=== PATIENT | female | born 1950 | race Caucasian/White ===

== ENCOUNTER 2022-07-30 06:03 | Inpatient (IN) ==
[~2022-07-30 06:03] MED LIST: 0.9 % Sodium Chloride 1,000 ML IVC ONE; Acetaminophen IV 1,000 MG/100 ML BAG IVPB ONE
[2022-07-30] MEDS ORDERED: CeFAZolin Syr 2,000MG/20 ML 2,000 MG/20 ML SYRINGE IVPB ONE (06:28)
[2022-07-30] MEDS ORDERED: Ringers Solution, Lactated 1,000 ML IVC SCH (06:30)
[2022-07-30] MEDS ORDERED: *HR* FentaNYL (PF) 100 MCG/2 ML VIAL ONE (06:34)
[2022-07-30] MEDS ORDERED: *HR* Propofol 200 MG/20 ML VIAL IVP ONE (06:34)
[2022-07-30] MEDS ORDERED: *HR* Rocuronium Bromide 50 MG/5 ML VIAL ONE (06:36)
[2022-07-30] MEDS ORDERED: Lidocaine -MPF 2% 5 ML VIAL ONE (06:36)
[2022-07-30] MEDS ORDERED: Ondansetron 4 MG/2 ML VIAL ONE (06:36)
[2022-07-30] MEDS ORDERED: *HR* Vasopressin 20 UNIT/ML VIAL ONE (06:47)
[2022-07-30] MEDS ORDERED: Famotidine 20 MG/2 ML VIAL IVP ONE (07:00)
[2022-07-30] MEDS ORDERED: *HR* HYDROmorphone PF 0.5 MG/0.5 ML SYRINGE IVP PRN (07:25)
[2022-07-30] MEDS ORDERED: Ipratropium/Albuterol Neb 3 ML IH ONE (07:25)
[2022-07-30] MEDS ORDERED: Naloxone 0.4 MG/ML INJ IVP PRN ×2 (07:25→10:29)
[2022-07-30] MEDS ORDERED: Nitroglycerin 0.4 MG TAB.SUBL SL PRN (07:25)
[2022-07-30] MEDS ORDERED: *HR* Midazolam HCl 2 MG/2 ML VIAL ONE (07:32)
[2022-07-30] MEDS ORDERED: *HR* HYDROMORPHONE 2 MG/ML VIAL ONE (08:20)
[2022-07-30] MEDS ORDERED: Sugammadex Sodium 200 MG/2 ML VIAL IV ONE (08:44)
[2022-07-30] MEDS ORDERED: *HR* Dextrose 50 % in Water (Syg) 50 ML SYRINGE IVP PRN (10:29)
[2022-07-30] MEDS ORDERED: D5% in Water 1,000 ML IVC PRN (10:29)
[2022-07-30] MEDS ORDERED: Ondansetron 4 MG/2 ML VIAL IVP PRN (10:29)
[2022-07-30] MEDS ORDERED: Dextrose Gel 15 GM/37.5 ML TUBE PO PRN ×2 (10:29)
[2022-07-30] MEDS: 0.9 % Sodium Chloride 1,000 ML IVC SCH (11:00)
[2022-07-30] MEDS: Levalbuterol Neb 1.25 MG/3 ML IH SCH ×3 (11:12→22:50)
[2022-07-30] MEDS: Insulin LISPRO 300 UNITS/3 ML VIAL SUBQ SCH ×3 (12:30→20:24)
[2022-07-30] MEDS: *HR* HYDROcodone/Acet 5/325 mg TABLET PO PRN ×2 (12:52→20:28)
[2022-07-30] MEDS: *HR* Heparin 5,000 UNIT/ML VIAL SQ SCH ×2 (13:05→20:25)
[2022-07-30] MEDS: Gabapentin 300 MG CAPSULE PO SCH ×2 (14:05→20:24)
[2022-07-30] MEDS ORDERED: *HR* Glimepiride 4 MG TABLET PO SCH (17:00)
[2022-07-30] MEDS: *HR* SitaGLIPtin 25 MG TABLET PO SCH (18:29)
[2022-07-30] MEDS: *HR* Metformin 500 MG TABLET PO SCH (18:29)
[2022-07-30] MEDS: Famotidine 20 MG TABLET PO SCH (20:24)
[2022-07-30] MEDS: Aspirin Enteric Coated 325 MG Tablet PO SCH (20:24)
[2022-07-30] MEDS: Sennosides/Docusate Sodium TABLET PO SCH (20:24)
[2022-07-31 03:33] LABS: Hematocrit 25.1 % (35.3-44.9); Mean Corpuscular HGB Conc 31.1 g/dL (31.6-35.5); Mean Corpuscular Hemoglobin 31.1 pg (28.0-33.3); Mean Platelet Volume 9.6 fL (9.4-12.4); Platelet Count 269 K/mcL (140-400); Red Blood Count 2.51 M/mcL (3.82-4.97); Red Cell Distribution Width 13.5 % (11.5-14.5)
[2022-07-31 03:35] LABS: Hemoglobin 7.8 g/dL (11.5-15.4)
[2022-07-31 03:51] LABS: Calcium 7.1 mg/dL (8.6-10.3); Magnesium 1.7 mg/dL (1.6-2.6); Potassium 3.9 mEq/L (3.5-5.1)
[2022-07-31] MEDS: Levalbuterol Neb 1.25 MG/3 ML IH SCH ×4 (04:54→21:36)
[2022-07-31] MEDS: *HR* Heparin 5,000 UNIT/ML VIAL SQ SCH ×4 (04:57→20:08)
[2022-07-31] MEDS: 0.9 % Sodium Chloride 1,000 ML IVC SCH (07:41)
[2022-07-31] MEDS: *HR* Metformin 500 MG TABLET PO SCH ×2 (07:41→16:21)
[2022-07-31] MEDS: Famotidine 20 MG TABLET PO SCH ×2 (07:42→20:07)
[2022-07-31] MEDS: FLUoxetine 20 MG CAPSULE PO SCH (07:42)
[2022-07-31] MEDS: Gabapentin 300 MG CAPSULE PO SCH ×3 (07:42→20:07)
[2022-07-31] MEDS: *HR* SitaGLIPtin 25 MG TABLET PO SCH ×2 (07:42→16:21)
[2022-07-31] MEDS: *HR* HYDROcodone/Acet 5/325 mg TABLET PO PRN ×3 (07:42→20:06)
[2022-07-31] MEDS: Sennosides/Docusate Sodium TABLET PO SCH ×2 (07:45→20:07)
[2022-07-31] MEDS: Insulin LISPRO 300 UNITS/3 ML VIAL SUBQ SCH ×4 (07:48→20:09)
[2022-07-31] MEDS: *HR* Glimepiride 4 MG TABLET PO SCH ×2 (09:51→20:07)
[2022-07-31] MEDS: Aspirin Enteric Coated 325 MG Tablet PO SCH (20:07)
[2022-07-31] MEDS: Budesonide/Formoterol 160/4.5 1 PUFF INH IH SCH (21:36)
[2022-08-01 03:16] LABS: Hematocrit 22.4 % (35.3-44.9); Hemoglobin 7.2 g/dL (11.5-15.4); Mean Corpuscular HGB Conc 32.1 g/dL (31.6-35.5); Mean Corpuscular Hemoglobin 32.3 pg (28.0-33.3); Mean Corpuscular Volume 100.4 fL (83.0-100.0); Mean Platelet Volume 9.5 fL (9.4-12.4); Platelet Count 253 K/mcL (140-400); Red Blood Count 2.23 M/mcL (3.82-4.97); Red Cell Distribution Width 13.8 % (11.5-14.5); White Blood Count 6.6 K/mcL (4.3-11.1)
[2022-08-01 03:29] LABS: Calcium 8.1 mg/dL (8.6-10.3); Potassium 4.5 mEq/L (3.5-5.1)
[2022-08-01] MEDS: Levalbuterol Neb 1.25 MG/3 ML IH SCH ×4 (04:49→22:34)
[2022-08-01] MEDS: *HR* Heparin 5,000 UNIT/ML VIAL SQ SCH ×3 (05:29→20:50)
[2022-08-01] MEDS: *HR* HYDROcodone/Acet 5/325 mg TABLET PO PRN ×4 (05:52→20:50)
[2022-08-01] MEDS: *HR* Metformin 500 MG TABLET PO SCH ×2 (08:20→16:41)
[2022-08-01] MEDS: Sennosides/Docusate Sodium TABLET PO SCH ×2 (08:20→21:00)
[2022-08-01] MEDS: Gabapentin 300 MG CAPSULE PO SCH ×3 (08:21→20:50)
[2022-08-01] MEDS: FLUoxetine 20 MG CAPSULE PO SCH (08:21)
[2022-08-01] MEDS: *HR* SitaGLIPtin 25 MG TABLET PO SCH ×2 (08:22→16:41)
[2022-08-01] MEDS: *HR* Glimepiride 4 MG TABLET PO SCH ×2 (08:22→21:35)
[2022-08-01] MEDS: Famotidine 20 MG TABLET PO SCH ×2 (08:22→20:50)
[2022-08-01] MEDS: Insulin LISPRO 300 UNITS/3 ML VIAL SUBQ SCH ×4 (08:23→20:50)
[2022-08-01] MEDS: Budesonide/Formoterol 160/4.5 1 PUFF INH IH SCH ×2 (10:40→22:33)
[2022-08-01] MEDS: Aspirin Enteric Coated 325 MG Tablet PO SCH (20:49)
[2022-08-02] MEDS: *HR* HYDROcodone/Acet 5/325 mg TABLET PO PRN ×3 (01:58→17:27)
[2022-08-02] MEDS: Levalbuterol Neb 1.25 MG/3 ML IH SCH ×4 (04:53→21:05)
[2022-08-02] MEDS: *HR* Heparin 5,000 UNIT/ML VIAL SQ SCH ×3 (05:05→22:16)
[2022-08-02] MEDS: *HR* SitaGLIPtin 25 MG TABLET PO SCH ×2 (09:28→16:56)
[2022-08-02] MEDS: *HR* Metformin 500 MG TABLET PO SCH ×2 (09:28→16:56)
[2022-08-02] MEDS: *HR* Glimepiride 4 MG TABLET PO SCH ×2 (09:28→17:27)
[2022-08-02] MEDS: Sennosides/Docusate Sodium TABLET PO SCH ×2 (09:28→19:55)
[2022-08-02] MEDS: Gabapentin 300 MG CAPSULE PO SCH ×3 (09:28→19:54)
[2022-08-02] MEDS: FLUoxetine 20 MG CAPSULE PO SCH (09:28)
[2022-08-02] MEDS: Famotidine 20 MG TABLET PO SCH ×2 (09:29→19:54)
[2022-08-02] MEDS: Insulin LISPRO 300 UNITS/3 ML VIAL SUBQ SCH ×4 (10:06→19:54)
[2022-08-02] MEDS: Budesonide/Formoterol 160/4.5 1 PUFF INH IH SCH ×2 (11:13→21:05)
[2022-08-02] MEDS: Aspirin Enteric Coated 325 MG Tablet PO SCH (19:54)
[2022-08-03] MEDS: *HR* HYDROcodone/Acet 5/325 mg TABLET PO PRN ×4 (03:15→20:34)
[2022-08-03] MEDS: Levalbuterol Neb 1.25 MG/3 ML IH SCH ×4 (04:19→21:38)
[2022-08-03] MEDS: *HR* Heparin 5,000 UNIT/ML VIAL SQ SCH ×2 (06:03→15:07)
[2022-08-03 07:16] LABS: Hematocrit 21.5 % (35.3-44.9); Hemoglobin 6.8 g/dL (11.5-15.4); Mean Corpuscular HGB Conc 31.6 g/dL (31.6-35.5); Mean Corpuscular Hemoglobin 31.1 pg (28.0-33.3); Mean Corpuscular Volume 98.2 fL (83.0-100.0); Mean Platelet Volume 9.4 fL (9.4-12.4); Platelet Count 310 K/mcL (140-400); Red Blood Count 2.19 M/mcL (3.82-4.97); Red Cell Distribution Width 13.6 % (11.5-14.5); White Blood Count 7.2 K/mcL (4.3-11.1)
[2022-08-03 07:37] LABS: BUN/Creatinine Ratio 21 (6-26); Blood Urea Nitrogen 15 mg/dL (8-23); Calcium 8.2 mg/dL (8.6-10.3); Carbon Dioxide 21 mEq/L (23-29); Chloride 100 mEq/L (98-107); Glucose 196 mg/dL (70-105); Osmolality,Calculated 272 (280-300); Potassium 4.1 mEq/L (3.5-5.1); Sodium 128 mEq/L (136-145)
[2022-08-03] MEDS: Famotidine 20 MG TABLET PO SCH ×2 (08:09→20:23)
[2022-08-03] MEDS: Sennosides/Docusate Sodium TABLET PO SCH ×2 (08:09→20:23)
[2022-08-03] MEDS: *HR* Metformin 500 MG TABLET PO SCH ×2 (08:09→17:57)
[2022-08-03] MEDS: *HR* SitaGLIPtin 25 MG TABLET PO SCH ×2 (08:09→17:57)
[2022-08-03] MEDS: *HR* Glimepiride 4 MG TABLET PO SCH ×2 (08:09→17:57)
[2022-08-03] MEDS: FLUoxetine 20 MG CAPSULE PO SCH (08:09)
[2022-08-03] MEDS: Insulin LISPRO 300 UNITS/3 ML VIAL SUBQ SCH ×4 (08:10→20:24)
[2022-08-03] MEDS: Gabapentin 300 MG CAPSULE PO SCH ×2 (08:10→15:08)
[2022-08-03] MEDS: Budesonide/Formoterol 160/4.5 1 PUFF INH IH SCH ×2 (10:28→21:38)
[2022-08-03] MEDS ORDERED: 0.9 % Sodium Chloride 500 ML ONE (11:31)
[2022-08-03 15:11] LABS: Hematocrit 23.9 % (35.3-44.9); Hemoglobin 7.8 g/dL (11.5-15.4)
[2022-08-03 19:56] LABS: Basophils % 0.1 %; Eosinophils # 0.2 K/mcL (0.0-0.6); Eosinophils % 2.5 %; Hematocrit 23.8 % (35.3-44.9); Hemoglobin 7.8 g/dL (11.5-15.4); Immature Granulocytes % 1.1 % (0-4); Lymphocytes # 0.9 K/mcL (0.6-4.6); Lymphocytes % 12.2 %; Mean Corpuscular HGB Conc 32.8 g/dL (31.6-35.5); Mean Corpuscular Hemoglobin 31.5 pg (28.0-33.3); Monocytes # 0.6 K/mcL (0.0-1.3); Monocytes % 7.6 %; Neutrophils # 5.7 K/mcL (1.6-8.9); Platelet Count 299 K/mcL (140-400); Red Blood Count 2.48 M/mcL (3.82-4.97); Red Cell Distribution Width 14.5 % (11.5-14.5); Segmented Neutrophils % 76.5 %; White Blood Count 7.5 K/mcL (4.3-11.1)
[2022-08-03] MEDS: Aspirin Enteric Coated 325 MG Tablet PO SCH (20:23)
[2022-08-04 03:14] LABS: Hematocrit 24.9 % (35.3-44.9); Mean Corpuscular HGB Conc 32.1 g/dL (31.6-35.5); Mean Corpuscular Hemoglobin 30.8 pg (28.0-33.3); Mean Corpuscular Volume 95.8 fL (83.0-100.0); Mean Platelet Volume 9.2 fL (9.4-12.4); Platelet Count 318 K/mcL (140-400); Red Cell Distribution Width 14.4 % (11.5-14.5); White Blood Count 6.8 K/mcL (4.3-11.1)
[2022-08-04 03:36] LABS: BUN/Creatinine Ratio 22 (6-26); Blood Urea Nitrogen 15 mg/dL (8-23); Calcium 8.7 mg/dL (8.6-10.3); Carbon Dioxide 22 mEq/L (23-29); Chloride 103 mEq/L (98-107); Glucose 102 mg/dL (70-105); Osmolality,Calculated 277 (280-300); Potassium 3.8 mEq/L (3.5-5.1); Sodium 133 mEq/L (136-145)
[2022-08-04] MEDS: Levalbuterol Neb 1.25 MG/3 ML IH SCH ×2 (03:56→10:41)
[2022-08-04 04:04] VITALS: TEMP 98
[2022-08-04] MEDS: Sennosides/Docusate Sodium TABLET PO SCH (08:02)
[2022-08-04] MEDS: *HR* Glimepiride 4 MG TABLET PO SCH (08:02)
[2022-08-04] MEDS: Famotidine 20 MG TABLET PO SCH (08:02)
[2022-08-04] MEDS: *HR* Metformin 500 MG TABLET PO SCH (08:02)
[2022-08-04] MEDS: FLUoxetine 20 MG CAPSULE PO SCH (08:02)
[2022-08-04] MEDS: Insulin LISPRO 300 UNITS/3 ML VIAL SUBQ SCH (08:02)
[2022-08-04] MEDS: *HR* SitaGLIPtin 25 MG TABLET PO SCH (08:02)
[2022-08-04] MEDS: Budesonide/Formoterol 160/4.5 1 PUFF INH IH SCH (10:41)
[2022-08-04 11:12] VITALS: BP 171/54; O2SAT 90
[2022-08-04 13:17] VITALS: PULSE 86
== END 2022-08-04 14:22 | disposition home or self-care (01) | DRG 854 ==
LOC: SAMDAY 06:03 → 2NNU 10:40
PROVIDERS: ADMIT Thoracic Surgery (Cardiothoracic Vascular Surgery); ATTEND Thoracic Surgery (Cardiothoracic Vascular Surgery)